=== PATIENT | female | born 1960 | race Caucasian/White ===

== ENCOUNTER 2017-12-03 18:54 | Emergency (ER) | payer OTHER ==
[~2017-12-03] VITALS: Ht 154.9 cm; Wt 65.8 kg
[~2017-12-03 18:54] MED LIST: AMBIEN CR12.5 MG PO; AMPICILLIN500 MG PO; APAP/HYDROCODON1 T13 PO; LAC PO; LIPITOR40 MG PO; ONDANSETRON HYDR4 MG PO; XANAX XR1 M1 PO; ZOLOFT25 MG PO
[2017-12-03 18:57] VITALS: Ht 154.9 cm; Wt 65.8 kg
[2017-12-03 21:12] VITALS: BP 122/80
== END 2017-12-03 21:12 | disposition home or self-care (01) ==
LOC: ED 18:54
DX: N12 Tubulo-interstitial nephritis, not specified as acute or chronic (principal); E11.9 Type 2 diabetes mellitus without complications; E78.00 Pure hypercholesterolemia, unspecified